=== PATIENT | female | born 1960 | race Caucasian/White ===

== ENCOUNTER 2025-05-22 06:52 | Observation (INO) ==
[2025-05-20 17:02] LABS: INR 1.0 (0.9-1.1); Prothrombin Time 14.2 sec (11.9-14.5)
[2025-05-20 18:43] LABS: Estimated Average Glucose(eAG) 163.0 mg/dL; Hemoglobin A1C 7.3 % Hgb (4.0-6.0)
[2025-05-22] MEDS ORDERED: ROCURONIUM 10 MG/ML ML IV ONE (08:14)
[2025-05-22] MEDS ORDERED: ONDANSETRON 4 MG/2 ML VIAL ONE (08:14)
[2025-05-22] MEDS ORDERED: PROPOFOL 200 MG/20 ML VIAL IV ONE (08:14)
[2025-05-22] MEDS ORDERED: LIDOCAINE 2% PF 5 ML VIAL ONE (08:14)
[2025-05-22] MEDS ORDERED: DEXAMETHASONE 10 MG/ML VIAL ONE (08:14)
[2025-05-22] MEDS ORDERED: MAGNESIUM SULFATE 2 GM/50 ML BAG IV ONE (08:15)
[2025-05-22] MEDS ORDERED: fentaNYL 100 MCG/2 ML VIAL ONE (08:15)
[2025-05-22] MEDS: ceFAZolin 2 GM in DEXTROSE 5% IN WATER 50 ML IV SCH (08:41)
[2025-05-22] MEDS ORDERED: SUGAMMADEX SODIUM 200 MG/2 ML VIAL IV ONE (10:03)
[2025-05-22] MEDS ORDERED: PHENYLephrine 1 MG/10 ML SYRINGE (ANEST) ONE (10:20)
[2025-05-22] MEDS ORDERED: ROPIVACAINE HCL/PF 30 ML VIAL IJ ONE (11:00)
[2025-05-22] MEDS ORDERED: IPRATROPIUM/ALBUTEROL 3 ML AMPUL.NEB NEB PRN (11:19)
[2025-05-22] MEDS ORDERED: 0.9 % SODIUM CHLORIDE 1,000 ML IV SCH ×3 (11:45→13:30)
[2025-05-22] MEDS: ONDANSETRON 4 MG/2 ML VIAL IV PRN ×2 (11:59→21:35)
[2025-05-22] MEDS: ACETAMINOPHEN 1,000 MG/100 ML BAG IV ONE (11:59)
[2025-05-22] MEDS: KETOROLAC 30 MG/ML VIAL IV PRN (12:18)
[2025-05-22] MEDS: HYDROmorphone 0.5 MG/0.5 ML SYRINGE IV PRN ×2 (12:18→21:35)
[2025-05-22] MEDS: 0.9 % SODIUM CHLORIDE 10 ML SYRINGE IV SCH (13:50)
[2025-05-22] MEDS: 0.9 % SODIUM CHLORIDE 1,000 ML IV SCH (17:07)
[2025-05-23 06:05] LABS: Basophils # (Auto) 0.02 K/mcL (0.00-0.30); Basophils % (Auto) 0.1 % (0.0-2.0); Eosinophils # (Auto) 0.03 K/mcL (0.00-0.70); Eosinophils % (Auto) 0.2 % (0.0-7.0); Hematocrit 37.3 % (34.1-44.9); Hemoglobin 12.1 g/dL (11.2-15.7); Lymphocytes # (Auto) 2.81 K/mcL (1.50-4.80); Lymphocytes % (Auto) 16.9 % (15.5-49.0); Mean Corpuscular HGB Conc 32.4 g/dL (31.0-36.0); Monocytes # (Auto) 1.30 K/mcL (0.10-0.90); Monocytes % (Auto) 7.8 % (1.0-12.0); Neutrophils % (Auto) 74.8 % (38.0-78.0); Platelet Count 471 K/mcL (140-440); RBC 4.11 M/mcL (3.59-5.38); WBC 16.6 K/mcL (4.5-11.0)
[2025-05-23 06:23] LABS: ALT/SGPT 21 U/L (<40); AST/SGOT 24 U/L (<32); Albumin 4.0 gm/dL (3.2-5.2); Albumin/Globulin Ratio 1.3 (1.0-2.3); Alkaline Phosphatase 56 U/L (39-117); Anion Gap 10.0 (8.0-16.0); Bilirubin,Direct < 0.2 mg/dL (0-0.3); Bilirubin,Total 0.4 mg/dL (0.1-1.0); Blood Urea Nitrogen 18 mg/dL (8-23); Calcium 9.1 mg/dL (8.6-10.4); Carbon Dioxide 28 mmol/L (22-30); Chloride 99 mmol/L (96-108); Globulin 3.2 gm/dL (2.2-3.7); Glucose 126 mg/dL (70-105); Phosphorous 3.7 mg/dL (2.5-4.5); Potassium 3.6 mmol/L (3.3-5.1); Sodium 137 mmol/L (133-145); Triglycerides 153 mg/dL (<150); Uric Acid 8.1 mg/dL (2.5-8.0)
[2025-05-23] MEDS: LEVOTHYROXINE 100 MCG TABLET PO SCH (07:43)
[2025-05-23] MEDS: metFORMIN 500 MG TAB.XL.24H PO SCH (07:43)
[2025-05-23] MEDS ORDERED: LOSARTAN/HCTZ 100/25 TABLET PO SCH (09:00)
[2025-05-23] MEDS: LOSARTAN 50 MG TABLET PO SCH (09:07)
[2025-05-23] MEDS: HYDROCHLOROTHIAZIDE 25 MG TABLET PO SCH (09:07)
[2025-05-23] MEDS: PIOGLITAZONE 15 MG TABLET PO SCH (10:56)
[2025-05-23 15:31] VITALS: TEMP 97.2; O2SAT 99
== END 2025-05-23 16:13 | disposition home or self-care (01) ==
LOC: MEDSUR 06:52 → SUR 06:52
PROVIDERS: ADMIT Family Medicine Adult Medicine; ATTEND Family Medicine Adult Medicine
PROC: LAPAPPY (ICD-10-PCS; 2025-05-22 09:55)